=== PATIENT | male | born 1965 ===

== ENCOUNTER 2020-09-24 13:25 | Emergency (ER) | payer MEDICAID ==
[~2020-09-24] VITALS: Ht 177.8 cm; Wt 72.9 kg
[2020-09-24 13:42] VITALS: BP 95/72
--- NOTE | 2020-09-24 14:11 | NUR ---
Imaging attempted to take pt to [facility]. Pt states he has to leave for a minute and will be right back.
--- NOTE | 2020-09-24 14:16 | NUR ---
NO ANSWER IN LOBBY
--- NOTE | 2020-09-24 14:39 | NUR ---
No answer in lobby.
== END 2020-09-24 14:41 | disposition left against medical advice (07) ==
LOC: ED 13:30
DX: R51.9 Headache, unspecified (principal)
CPT/HCPCS: 99281